=== PATIENT | female | born 1945 | race Caucasian/White ===

== ENCOUNTER 2018-11-20 10:17 | Inpatient (IN) | payer MEDICARE, OTHER ==
[~2018-11-20] VITALS: Ht 167.6 cm; Wt 63.5 kg
--- NOTE | 2018-11-20 10:20 | NUR ---
Patient is awake, oriented to name only, moving 3 extremities (both upper arms & left leg) only, respiration:easy, skin wamr & dry. No skin tears or bruises seen.
[2018-11-20] MEDS ORDERED: HALOPERIDOL LACTATE 5 MG/1 ML VIAL IM ONE (10:30)
[2018-11-20] MEDS ORDERED: LORAZEPAM 2 MG/1 ML VIAL IM ONE (10:30)
[2018-11-20] MEDS ORDERED: HALOPERIDOL LACTATE 5 MG/1 ML VIAL ONE (10:33)
[2018-11-20] MEDS ORDERED: LORAZEPAM 2 MG/1 ML VIAL ONE (10:33)
[2018-11-20] MEDS ORDERED: MULT1TAB73 PO (10:55)
[2018-11-20] MEDS ORDERED: LEVO50TA8 PO (10:55)
[2018-11-20] MEDS ORDERED: DOCU240C26 PO (10:55)
[2018-11-20] MEDS ORDERED: MONT10TA22 PO (10:55)
[2018-11-20] MEDS ORDERED: ACET325T53 PO (10:55)
[2018-11-20] MEDS ORDERED: AMLO2.5T2 PO (10:55)
[2018-11-20] MEDS ORDERED: ACET325C3 PO (10:55)
[2018-11-20] MEDS ORDERED: CHOL100062 PO (10:55)
[2018-11-20] MEDS ORDERED: MEMA1CAP3 PO (10:55)
[2018-11-20] MEDS ORDERED: MAGN400O6 PO (10:55)
[2018-11-20] MEDS ORDERED: VALP250S3 PO (10:55)
[2018-11-20] MEDS ORDERED: CRAN1CAP6 PO (10:55)
--- NOTE | 2018-11-20 11:26 | NUR ---
Patient is resting comfortably on gurney with eyes closed, easily arousable by touch, for admission to 2nd floor, pending adimtting papers@this time. ER registration staff Josue notified.
[2018-11-20 11:36] LABS: BASOPHILS # (AUTO) 0.1 K/uL (0.0-8.0); BASOPHILS % (AUTO) 0.5 % (0.0-2.0); CARBON DIOXIDE 28 mmol/L (21-32); CHLORIDE 106 mmol/L (98-107); CREATININE 0.5 mg/dL (0.6-1.3); EOSINOPHILS # (AUTO) 0.1 K/uL (0.0-0.7); EOSINOPHILS % (AUTO) 1.5 % (0.0-7.0); GLUCOSE 99 mg/dL (74-106); HEMATOCRIT 36.7 % (31.2-41.9); HEMOGLOBIN 12.3 g/dL (10.9-14.3); LYMPHOCYTES % (AUTO) 9.9 % (20.5-51.5); MEAN CORPUSCULAR HEMOGLOBIN 28.6 uug (24.7-32.8); MEAN CORPUSCULAR HGB CONC 34 g/dL (32.3-35.6); MEAN CORPUSCULAR VOLUME 85.5 fL (75.5-95.3); MONOCYTES # (AUTO) 0.9 K/uL (2.0-10.0); MONOCYTES % (AUTO) 9.2 % (0.0-11.0); NEUTROPHILS # (AUTO) 8.1 K/uL (1.8-8.9); NEUTROPHILS % (AUTO) 78.9 % (38.5-71.5); PLATELET COUNT (AUTO) 240 K/uL (179-408); POTASSIUM 3.5 mmol/L (3.5-5.1); RED BLOOD CELL COUNT(AUTO) 4.29 MIL/uL (3.63-4.92); UREA NITROGEN, BLOOD 20 mg/dL (7-18); WHITE BLOOD COUNT (AUTO) 10.2 K/uL (3.8-11.8)
--- NOTE | 2018-11-20 11:55 | NUR ---
ER registration staff Josue just handed the admitting papers. Patient is now ready to go to 2nd floor. ARNOLD Sneed notified.
[2018-11-20 12:32] VITALS: BP 118/59
[2018-11-20] MEDS ORDERED: IV NS 1000 ML 1,000 ML IV PRN (13:28)
[2018-11-20] MEDS ORDERED: MAGNESIUM HYDROXIDE 30 ML LIQUID UDC PO PRN (13:30)
[2018-11-20] MEDS ORDERED: Z GUARD REMEDY PASTE 57 GM TUBE TOP PRN (13:30)
[2018-11-20] MEDS ORDERED: ONDANSETRON 4 MG/2 ML VIAL IV PRN (13:30)
[2018-11-20] MEDS ORDERED: ACETAMINOPHEN 325 MG TABLET PO PRN ×2 (13:30→13:45)
[2018-11-20] MEDS ORDERED: Medication Not On Formulary EA (Acetaminophen 650 MG) PO PRN (13:45)
--- NOTE | 2018-11-20 14:00 | NUR ---
received patient from ER via [facility] with DX of right femoral fracture and admitted to medsurg unit, with vital signs of 118/59 , HR 89, temp 98.5 and o2 at 100%. , no SOB noted and no c/o pain noted at this time, IV intact and ID band provede. will continue to monitor.
[2018-11-20 16:00] VITALS: BP 138/69
[2018-11-20 16:01] LABS: *BILIRUBIN,URIN NEGATIVE (NEGATIVE); *BLOOD, URINE TRACE (NEGATIVE); *CLARITY,URINE CLEAR (CLEAR); *COLOR,URINE YELLOW (YELLOW); *KETONES,URINE NEGATIVE (NEGATIVE); *UROBILINOGEN,URINE 0.2 E.U./dl (NORMAL); LEUKOCYTE ESTERASE ,URINE 2+ (NEGATIVE); NITRITE, URINE NEGATIVE (NEGATIVE); UGLUCOSE NEGATIVE (NEGATIVE)
[2018-11-20 16:11] LABS: RBC,URINE 0-3 /HPF (0-3)
[2018-11-20 16:12] LABS: BACTERIA,URINE R /HPF (NONE SEEN); SQUAMOUS EPITHELIAL CELL,UR FEW /HPF (NONE SEEN)
[2018-11-20] MEDS ORDERED: Medication Not On Formulary EA (Vit C/Vitamin E Acetate/Cranb (Cranberry Concentrate Sof PO SCH (17:00)
[2018-11-20] MEDS ORDERED: VALPROATE SODIUM PO SCH (17:00)
[2018-11-20] MEDS ORDERED: MEMANTINE HCL 10 MG TABLET PO SCH (17:00)
[2018-11-20] MEDS: MONTELUKAST SODIUM 10 MG TABLET PO SCH (18:00)
--- NOTE | 2018-11-20 18:55 | NUR ---
patient laying in bed comfortably with no SOB noted and no c/o pain noted at this time, IV intact and ID band. will continue to monitor.
[2018-11-20 19:07] VITALS: BP 118/66
[2018-11-20] MEDS: DIVALPROEX 125 MG TABLET.DR PO SCH (21:00)
[2018-11-20] MEDS ORDERED: MAGNESIUM HYDROXIDE 30 ML LIQUID UDC PO SCH (21:00)
[2018-11-20] MEDS: DOCUSATE SODIUM 250 MG CAPSULE PO SCH (21:00)
[2018-11-21 03:07] VITALS: BP 127/64
[2018-11-21] MEDS: PANTOPRAZOLE SODIUM 40 MG TABLET.DR PO SCH ×2 (06:20→06:26)
[2018-11-21] MEDS: LEVOTHYROXINE SODIUM 50 MCG TABLET PO SCH ×2 (06:22→06:26)
--- NOTE | 2018-11-21 06:41 | NUR ---
Patient very drowsy upon receiving into care last night. Arousable to painful stimuli and vigorous stimulation. A&O x 1, confused. NPO for possible surgery today. VSS. Vora in situ and draining clear yellow urine. Patient more awake in the morning and refused am meds. IV NS infusing at 75 cc/hr to R hand. No acute event throughout the shift.
--- NOTE | 2018-11-21 07:39 | NUR ---
patient is in bed, no acute distress noted, will be kept NPO for surgery
[2018-11-21] MEDS: DIVALPROEX 125 MG TABLET.DR PO SCH ×2 (08:06→21:00)
[2018-11-21] MEDS: MEMANTINE HCL 10 MG TABLET PO SCH ×2 (08:06→18:18)
[2018-11-21] MEDS: CHOLECALCIFEROL 1,000 UNIT TABLET PO SCH (08:07)
[2018-11-21] MEDS: MULTIVITAMINS,THERAPEUTIC TABLET PO SCH (08:07)
[2018-11-21] MEDS: AMLODIPINE 2.5 MG TABLET PO SCH (08:07)
[2018-11-21] MEDS: DONEPEZIL 10 MG TABLET PO SCH (08:13)
[2018-11-21] MEDS ORDERED: Medication Not On Formulary EA (Docusate Calcium 240 MG) PO SCH (09:00)
[2018-11-21] MEDS ORDERED: Medication Not On Formulary EA (Multivitamins (Multivitamin) 1 EACH) PO SCH (09:00)
[2018-11-21] MEDS ORDERED: Medication Not On Formulary EA (Memantine HCl/Donepezil HCl (Namzaric 28 mg-10 mg Capsul PO SCH (09:00)
[2018-11-21] MEDS: CEFTRIAXONE 1 G in IV DEXTROSE 5% 50 ML IV SCH (11:18)
[2018-11-21 12:00] VITALS: BP 155/67
--- NOTE | 2018-11-21 13:00 | NUR ---
patient left for surgery
[2018-11-21] MEDS ORDERED: VANCOMYCIN 1000 MG VIAL ONE (13:09)
[2018-11-21] MEDS ORDERED: POLYMYXIN B SULFATE 500,000 UNITS, BACITRACIN 50,000 UNITS, NORMAL SALINE 20 ML MC ONE ×3 (13:15)
[2018-11-21] MEDS ORDERED: MIDAZOLAM HCL 2 MG/2 ML VIAL ONE (13:23)
[2018-11-21] MEDS ORDERED: FENTANYL CITRATE 250 MCG/5 ML AMPUL ONE (13:23)
[2018-11-21] MEDS ORDERED: ROCURONIUM BROMIDE 50 MG/5 ML VIAL ONE (13:24)
[2018-11-21] MEDS ORDERED: SEVOFLURANE 250 ML BOTTLE IH ONE (13:36)
[2018-11-21] MEDS ORDERED: CEFAZOLIN 1 G VIAL MC ONE (13:56)
[2018-11-21] MEDS ORDERED: IV NORMAL SALINE 1000 ML BAG IV ONE (13:56)
[2018-11-21] MEDS ORDERED: ONDANSETRON 4 MG/2 ML VIAL IV ONE (13:56)
[2018-11-21] MEDS ORDERED: GLYCOPYRROLATE 0.2 MG/ML VIAL MC ONE (13:56)
[2018-11-21] MEDS ORDERED: PROPOFOL 200 MG/20 ML BOTTLE IV ONE (13:56)
[2018-11-21] MEDS ORDERED: METOCLOPRAMIDE HCL 10 MG/2 ML VIAL IV ONE (13:56)
[2018-11-21] MEDS ORDERED: NEOSTIGMINE METHYLSULFATE 10 MG/10 ML VIAL IV ONE (13:56)
[2018-11-21] MEDS ORDERED: IV D5W-0.45% NS +20 KCL 1,000 ML IV ONE (15:41)
--- NOTE | 2018-11-21 16:50 | NUR ---
patient came back from surgery, no sob,resp even nonlabored,skin warm and dry to touch, o2 sat at 2 liter nasal canula 99%, abduction pillow in place, right pedal pulse palpable. no acute distress noted.
[2018-11-21 17:00] VITALS: BP 129/60
[2018-11-21] MEDS: POTASSIUM CHLORIDE 20 MEQ in IV D5 1/2 NS 1000 ML 1,000 ML IV PRN (17:34)
[2018-11-21] MEDS ORDERED: POTASSIUM CHLORIDE 20 MEQ in IV D5 1/2 NS 1000 ML 1,000 ML IV PRN (18:00)
[2018-11-21] MEDS: MONTELUKAST SODIUM 10 MG TABLET PO SCH (18:18)
[2018-11-21 19:16] VITALS: BP 129/76
--- NOTE | 2018-11-21 19:38 | NUR ---
patient is in bed, no acute distress noted, report given to night shift supervisor accordingly
[2018-11-21] MEDS: DOCUSATE SODIUM 250 MG CAPSULE PO SCH (21:00)
--- NOTE | 2018-11-21 22:30 | NUR ---
PATIENT IS DROWSY, RESPONDS TO VERBAL STIMULI. REFUSES NASAL CANNULA, REFUSES TO EAT AND DRINK. UNABLE TO GIVE COLACE AND DEPAKOTE. OSCAR HELLER NOTIFIED VIA TEXT. NO RESPONSE. PATIENT IS CALM, NO DISTRESS NOTED. COMFORT AND SAFETY PROVIDED.
[2018-11-22 03:11] VITALS: BP 137/72
[2018-11-22] MEDS: POTASSIUM CHLORIDE 20 MEQ in IV D5 1/2 NS 1000 ML 1,000 ML IV PRN ×2 (06:15→23:28)
[2018-11-22 06:50] LABS: BASOPHILS % (AUTO) 0.2 % (0.0-2.0); EOSINOPHILS # (AUTO) 0.1 K/uL (0.0-0.7); EOSINOPHILS % (AUTO) 0.4 % (0.0-7.0); HEMOGLOBIN 11.3 g/dL (10.9-14.3); RED BLOOD CELL COUNT(AUTO) 3.95 MIL/uL (3.63-4.92)
[2018-11-22 06:55] LABS: CARBON DIOXIDE 26 mmol/L (21-32); CHLORIDE 106 mmol/L (98-107); CREATININE 0.6 mg/dL (0.6-1.3); GLUCOSE 147 mg/dL (74-106); MAGNESIUM 1.7 mg/dL (1.8-2.4); PHOSPHOROUS 2.7 mg/dL (2.5-4.9); UREA NITROGEN, BLOOD 15 mg/dL (7-18)
[2018-11-22] MEDS: LEVOTHYROXINE SODIUM 50 MCG TABLET PO SCH (07:00)
[2018-11-22] MEDS: PANTOPRAZOLE SODIUM 40 MG TABLET.DR PO SCH (07:00)
[2018-11-22 07:01] LABS: HEMATOCRIT 34.4 % (31.2-41.9); LYMPHOCYTES % (AUTO) 7.5 % (20.5-51.5); MEAN CORPUSCULAR HEMOGLOBIN 28.6 uug (24.7-32.8); MEAN CORPUSCULAR HGB CONC 33 g/dL (32.3-35.6); MONOCYTES # (AUTO) 1.7 K/uL (2.0-10.0); MONOCYTES % (AUTO) 12.1 % (0.0-11.0); NEUTROPHILS # (AUTO) 11.1 K/uL (1.8-8.9); NEUTROPHILS % (AUTO) 79.8 % (38.5-71.5); PLATELET COUNT (AUTO) 276 K/uL (179-408)
[2018-11-22 07:02] LABS: WHITE BLOOD COUNT (AUTO) 13.9 K/uL (3.8-11.8)
--- NOTE | 2018-11-22 07:45 | NUR ---
Patient slept well at night, no BM during the shift. Patient continues to refuse oxygen, water, food, and meds. Endorsed to the the day shift nurse ROSEMARY Curry.
[2018-11-22 08:13] VITALS: BP 116/75
[2018-11-22] MEDS: MEMANTINE HCL 10 MG TABLET PO SCH ×3 (08:30→17:00)
[2018-11-22] MEDS: CHOLECALCIFEROL 1,000 UNIT TABLET PO SCH ×2 (08:30→08:43)
[2018-11-22] MEDS: DIVALPROEX 125 MG TABLET.DR PO SCH ×3 (08:32→21:00)
[2018-11-22] MEDS: DONEPEZIL 10 MG TABLET PO SCH ×2 (08:32→08:42)
[2018-11-22] MEDS: AMLODIPINE 2.5 MG TABLET PO SCH ×2 (08:32→08:43)
[2018-11-22] MEDS: MULTIVITAMINS,THERAPEUTIC TABLET PO SCH ×2 (08:32→08:43)
--- NOTE | 2018-11-22 08:43 | NUR ---
[place]ace[place] dropped on floor while preparing medications, thrown in sharps. Patient refusing medications, tried crushing and putting in applesauce, patient still refusing. Medications thrown in sharps. Patient is also refusing to eat. Will notify
[2018-11-22] MEDS ORDERED: MORPHINE SULFATE 2 MG/1 ML DISP.SYRIN IV PRN (09:00)
[2018-11-22 11:00] VITALS: BP 118/66
[2018-11-22] MEDS: CEFTRIAXONE 1 G in IV DEXTROSE 5% 50 ML IV SCH (11:04)
[2018-11-22] MEDS ORDERED: MAGNESIUM SULFATE/D5W 100 ML IV SCH (11:15)
[2018-11-22 12:14] LABS: ALANINE AMINOTRANSFERASE 16 U/L (14-59); ALKALINE PHOSPHATASE 59 U/L (50-136); ASPARTATE AMINOTRANSFERASE 29 U/L (15-37); BILIRUBIN,DIRECT 0.1 mg/dL (0.0-0.2); BILIRUBIN,TOTAL 0.5 mg/dL (0.2-1.0); TOTAL PROTEIN, SERUM 6.5 g/dL (6.4-8.2)
[2018-11-22 12:24] LABS: THYROID STIMULATING HORMONE 1.555 mIU/mL (0.358-3.740)
[2018-11-22 15:18] VITALS: BP 133/52
[2018-11-22] MEDS ORDERED: PIPERACILLIN SODIUM/TAZOBACTAM 3.375 G in IV DEXTROSE 5% 50 ML IV ONE (15:30)
[2018-11-22] MEDS: MONTELUKAST SODIUM 10 MG TABLET PO SCH (17:01)
[2018-11-22 17:27] LABS: *BILIRUBIN,URIN NEGATIVE (NEGATIVE); *BLOOD, URINE 1+ (NEGATIVE); *CLARITY,URINE CLEAR (CLEAR); *COLOR,URINE YELLOW (YELLOW); *KETONES,URINE NEGATIVE (NEGATIVE); LEUKOCYTE ESTERASE ,URINE NEGATIVE (NEGATIVE); NITRITE, URINE NEGATIVE (NEGATIVE); UGLUCOSE NEGATIVE (NEGATIVE)
[2018-11-22 17:36] LABS: BACTERIA,URINE FEW /HPF (NONE SEEN); SQUAMOUS EPITHELIAL CELL,UR FEW /HPF (NONE SEEN)
--- NOTE | 2018-11-22 18:34 | NUR ---
Patient is awake and alert to self only. Respond only yes or no. Refusing all medications and meals today. Turned and repositioned q2h. Abduction pillow in place. surgical site remains dry and intact. Addendum: 11/22/18 at 1839 by OMAR SYKES RN urine sent to lab for repeat culture
[2018-11-22 20:00] VITALS: BP 142/75
--- NOTE | 2018-11-22 20:30 | NUR ---
PATIENT IS DROWSY, RESPONDS TO VERBAL STIMULI. REFUSES NASAL CANNULA, REFUSES TO EAT AND DRINK. UNABLE TO GIVE MEDICATIONS AND FOOD. ATTEMPTED TO DO ORAL CARE, PATIENT REFUSED. PATIENT IS CALM, NO DISTRESS NOTED. COMFORT AND SAFETY PROVIDED. NO BLEEDING FROM THE SURGICAL SITE NOTED.
[2018-11-22] MEDS: DOCUSATE SODIUM 250 MG CAPSULE PO SCH (21:00)
[2018-11-22] MEDS: PIPERACILLIN/TAZOBACTAM/D5W 3.375 G in PREMIXED 1 EACH IV SCH (23:57)
[2018-11-23 05:18] VITALS: BP 127/69
[2018-11-23] MEDS: LEVOTHYROXINE SODIUM 50 MCG TABLET PO SCH (06:30)
[2018-11-23] MEDS: PANTOPRAZOLE SODIUM 40 MG TABLET.DR PO SCH (06:30)
[2018-11-23 07:06] LABS: BASOPHILS # (AUTO) 0.1 K/uL (0.0-8.0); BASOPHILS % (AUTO) 0.5 % (0.0-2.0); EOSINOPHILS # (AUTO) 0.2 K/uL (0.0-0.7); LYMPHOCYTES # (AUTO) 1.2 K/uL (20.0-40.0); LYMPHOCYTES % (AUTO) 7.4 % (20.5-51.5); MEAN CORPUSCULAR HEMOGLOBIN 28.8 uug (24.7-32.8); MEAN CORPUSCULAR HGB CONC 33 g/dL (32.3-35.6); MEAN CORPUSCULAR VOLUME 86.2 fL (75.5-95.3); MONOCYTES # (AUTO) 1.7 K/uL (2.0-10.0); MONOCYTES % (AUTO) 10.8 % (0.0-11.0); NEUTROPHILS # (AUTO) 12.7 K/uL (1.8-8.9); NEUTROPHILS % (AUTO) 80.3 % (38.5-71.5); PLATELET COUNT (AUTO) 270 K/uL (179-408); RED BLOOD CELL COUNT(AUTO) 3.83 MIL/uL (3.63-4.92); WHITE BLOOD COUNT (AUTO) 15.8 K/uL (3.8-11.8)
--- NOTE | 2018-11-23 07:20 | NUR ---
Patient slept well at night, no BM during the shift, Vora is leaking. Patient continues to refuse water, food, oral care, and meds. Surgical site is not bleeding, no swelling noted. Endorsed to the the day shift nurse.
[2018-11-23 07:24] LABS: CARBON DIOXIDE 26 mmol/L (21-32); CHLORIDE 104 mmol/L (98-107); CREATININE 0.5 mg/dL (0.6-1.3); GLUCOSE 130 mg/dL (74-106); MAGNESIUM 2.3 mg/dL (1.8-2.4); PHOSPHOROUS 2.9 mg/dL (2.5-4.9); POTASSIUM 4.2 mmol/L (3.5-5.1); UREA NITROGEN, BLOOD 11 mg/dL (7-18)
--- NOTE | 2018-11-23 07:41 | NUR ---
Nurse Notes: received report from the night nurse Ray Alberts RN, patient only stares, does not speak. IV is infusing at 75 cc per hour. appears in no discomfort, in no respiratory distress.
[2018-11-23] MEDS: PIPERACILLIN/TAZOBACTAM/D5W 3.375 G in PREMIXED 1 EACH IV SCH ×3 (08:30→22:42)
[2018-11-23] MEDS: MEMANTINE HCL 10 MG TABLET PO SCH ×3 (09:00→18:10)
[2018-11-23] MEDS: AMLODIPINE 2.5 MG TABLET PO SCH (09:00)
[2018-11-23] MEDS: MULTIVITAMINS,THERAPEUTIC TABLET PO SCH ×2 (09:00→18:19)
[2018-11-23] MEDS: CHOLECALCIFEROL 1,000 UNIT TABLET PO SCH (09:00)
[2018-11-23] MEDS: DIVALPROEX 125 MG TABLET.DR PO SCH ×2 (09:00→21:36)
[2018-11-23] MEDS: DONEPEZIL 10 MG TABLET PO SCH (09:00)
--- NOTE | 2018-11-23 10:33 | NUR ---
PHARMACY CLINICAL NOTE (VANCOMYCIN DOSING) S: 73 YO female with DX of Leukocytosis, on Zosyn as well. Now adding Vancomycin O: BUN/SCR 11/0.5 (used scr 0.7); WBC 139--> 15.8, TEMP 98.6, DOSING WT 64 KG A/P: Will start Vancomycin 1000mg IVPB q14h , estimated peak of 38 & trough of 17, plan to order trough prior to 4th dose of vancomycin. [facility].
[2018-11-23 11:00] VITALS: BP 117/68
--- NOTE | 2018-11-23 11:00 | NUR ---
Nurse Notes:' patient was being cleaned up, left buttocks/sacral with break in skin, wound care consult, area needs to be changed. report from the night nurse Ray, skin was intact. charge nurse Caren took pictures of left sacral area and right hip incision. first step mattress was ordered.
[2018-11-23] MEDS: VANCOMYCIN IV 200 ML IV SCH (12:28)
--- NOTE | 2018-11-23 14:57 | NUR ---
Nurse Notes: seen by physical therapy, patient was able to stand, needs two person assistance. IV Vancomycin infused. patient is still having IV zosyn IVPB.
[2018-11-23 15:16] VITALS: BP 119/63
[2018-11-23] MEDS: MONTELUKAST SODIUM 10 MG TABLET PO SCH (18:09)
--- NOTE | 2018-11-23 18:15 | NUR ---
patient is able to swallow pills crush, with some pudding with small tsp of water, patient likes vanilla pudding. IV remains at 75 cc per hour.
--- NOTE | 2018-11-23 19:10 | NUR ---
Shift Report given to Ray. patient is able to swallow pills crushed, with vanilla pudding. apple sauce patient spit out. IV is infusing atr 75 cc per hour.
--- NOTE | 2018-11-23 19:55 | NUR ---
RECEIVED REPORT, PATIENT SHOWS NO SIGNS OF DISTRESS. COMFORT AND SAFETY PROVIDED. BOTH IVS ARE PATENT, WERE FLUSHED.
[2018-11-23 20:00] VITALS: BP 124/54
[2018-11-23] MEDS: DOCUSATE SODIUM 250 MG CAPSULE PO SCH (21:00)
--- NOTE | 2018-11-23 22:00 | NUR ---
PATIENT ATE 1/2 OF BANANA, 1/3 CUP OF VANILLA PUDDING, DRANK 30 ML OF JUICE. DEPAKOTE WAS CRUSHED INTO A FINE POWDER AND MIXED WITH PUDDING. COMFORT AND SAFETY MEASURE ARE IN PLACE, PATIENT WAS TURNED AND REPOSITIONED. BRAND IS DRAINING FREELY, NO LEAKAGE NOTED
[2018-11-24] MEDS: POTASSIUM CHLORIDE 20 MEQ in IV D5 1/2 NS 1000 ML 1,000 ML IV PRN (01:18)
[2018-11-24] MEDS: VANCOMYCIN IV 200 ML IV SCH (02:41)
[2018-11-24 05:16] VITALS: BP 122/63
[2018-11-24] MEDS: PIPERACILLIN/TAZOBACTAM/D5W 3.375 G in PREMIXED 1 EACH IV SCH ×2 (05:48→13:57)
[2018-11-24] MEDS: LEVOTHYROXINE SODIUM 50 MCG TABLET PO SCH (06:23)
[2018-11-24] MEDS: PANTOPRAZOLE SODIUM 40 MG TABLET.DR PO SCH (06:23)
[2018-11-24 06:47] LABS: BASOPHILS # (AUTO) 0.1 K/uL (0.0-8.0); BASOPHILS % (AUTO) 0.4 % (0.0-2.0); EOSINOPHILS # (AUTO) 0.6 K/uL (0.0-0.7); EOSINOPHILS % (AUTO) 4.2 % (0.0-7.0); LYMPHOCYTES # (AUTO) 1.2 K/uL (20.0-40.0); LYMPHOCYTES % (AUTO) 9.1 % (20.5-51.5); MEAN CORPUSCULAR HGB CONC 32 g/dL (32.3-35.6); MEAN CORPUSCULAR VOLUME 86.7 fL (75.5-95.3); MONOCYTES # (AUTO) 1.4 K/uL (2.0-10.0); MONOCYTES % (AUTO) 10.5 % (0.0-11.0); NEUTROPHILS % (AUTO) 75.8 % (38.5-71.5); PLATELET COUNT (AUTO) 314 K/uL (179-408); RED BLOOD CELL COUNT(AUTO) 3.91 MIL/uL (3.63-4.92); WHITE BLOOD COUNT (AUTO) 13.2 K/uL (3.8-11.8)
--- NOTE | 2018-11-24 07:00 | NUR ---
PATIENT SLEPT WELL, REPOSITIONED AND OFFLOADED Q2H. BRAND IS LEAKING AGAIN. BALLOON WAS DEFLATED AND REINFLATED WITH A CORRECT AMOUNT OF FLUID. IV IS PATENT.
[2018-11-24 07:01] LABS: CARBON DIOXIDE 30 mmol/L (21-32); CHLORIDE 104 mmol/L (98-107); CREATININE 0.6 mg/dL (0.6-1.3); GLUCOSE 110 mg/dL (74-106); MAGNESIUM 2.3 mg/dL (1.8-2.4); UREA NITROGEN, BLOOD 9 mg/dL (7-18)
[2018-11-24] MEDS: MULTIVITAMINS,THERAPEUTIC TABLET PO SCH (08:49)
[2018-11-24] MEDS: CHOLECALCIFEROL 1,000 UNIT TABLET PO SCH (08:49)
[2018-11-24] MEDS: MEMANTINE HCL 10 MG TABLET PO SCH (08:49)
[2018-11-24] MEDS: AMLODIPINE 2.5 MG TABLET PO SCH (08:49)
[2018-11-24] MEDS: DONEPEZIL 10 MG TABLET PO SCH (08:49)
[2018-11-24] MEDS: DIVALPROEX 125 MG TABLET.DR PO SCH (08:49)
[2018-11-24] MEDS ORDERED: DOCU250C14 PO (12:22)
[2018-11-24] MEDS ORDERED: DIVA125T2 PO (12:22)
[2018-11-24] MEDS ORDERED: DONE10TA11 PO (12:22)
[2018-11-24 12:40] VITALS: BP 116/68
--- NOTE | 2018-11-24 12:45 | NUR ---
PHARMACY CLINICAL NOTE (VANCOMYCIN DOSING) S:To continue vanco dosing for this 73 YO female for Leukocytosis O: BUN/SCR 11/0.6 WBC 13.2, TEMP 98.9 wt 63.85 kg ht 167.6 cm A/P: Will continue same dose of Vancomycin 1000mg IVPB q14h for today. 3rd dose today at 1600. Plan to order trough prior to 4th dose of vancomycin (ordered for 11/25 at 0530- RN has been informed to hold 0600 dose if vanco trough level is above 20 mcg/ml.) Will continue to monitor.
[2018-11-24 16:04] VITALS: BP 97/55
--- NOTE | 2018-11-24 18:00 | NUR ---
IV D/C'D PICTURES TAKEN. REPORT CALLED AND GIVEN TO SNF AND AMBULANCE ATTENDANTS.. DISCHARGED VIA AMBULANCE.
--- NOTE | 2018-11-24 19:05 | NUR ---
IV D/C'D REPORT CALLED TO HERMANN RILEY AT [facility] REPORT TO AMBULANCE ATTENDANTS TRANSFER TO [facility] VIA STRETCHER/AMBULANCE
== END 2018-11-24 19:00 | DRG 469 ==
LOC: ER 10:17 → MEDSURG3 11:42
PROVIDERS: ADMIT Registered Nurse; ATTEND Registered Nurse
PROC: 0SRR0JA Replacement of Right Hip Joint, Femoral Surface with Synthetic Substitute, Uncemented, Open Approach (ICD-10-PCS; principal; 2018-11-21)
DX: S72.001A Fracture of unspecified part of neck of right femur, initial encounter for closed fracture (principal); G92 Toxic encephalopathy; N39.0 Urinary tract infection, site not specified; J98.11 Atelectasis; W19.XXXA Unspecified fall, initial encounter; Y92.129 Unspecified place in nursing home as the place of occurrence of the external cause; G30.9 Alzheimer's disease, unspecified; F02.80 Dementia in other diseases classified elsewhere, unspecified severity, without behavioral disturbance, psychotic disturbance, mood disturbance, and anxiety; E03.9 Hypothyroidism, unspecified; Z79.890 Hormone replacement therapy; J45.909 Unspecified asthma, uncomplicated; R79.89 Other specified abnormal findings of blood chemistry; Z98.1 Arthrodesis status; I10 Essential (primary) hypertension; D72.829 Elevated white blood cell count, unspecified; Z79.899 Other long term (current) drug therapy; F20.9 Schizophrenia, unspecified; Z91.14 Patient's other noncompliance with medication regimen
CPT/HCPCS: 36415; 71045; 72170; 73501; 73551; 83735; 84100; 84443; 85025; 85730; 86850; 86900; 86901; 87086; 93005; 93307; 97110; 97530; A4649; A4663; C1776; G0378; J0690; J0696; J1630; J2060; J2250; J2270; J2405; J2543; J2710; J2765; J3010; J3370; J3475; J3480; J3490; J7030; J7060

== ENCOUNTER 2021-02-11 21:28 | Inpatient (IN) | payer MEDICARE, OTHER ==
[~2021-02-11] VITALS: Ht 167.6 cm; Wt 63.3 kg
[~2021-02-11 21:28] MED LIST: ACET325C3 PO; ACET325T53 PO; AMLO2.5T2 PO; CHOL100062 PO; CRAN1CAP6 PO; DIVA125T2 PO; DOCU240C26 PO; DOCU250C14 PO; DONE10TA11 PO; LEVO50TA8 PO; MAGN400O6 PO; MEMA1CAP3 PO; MONT10TA22 PO; MULT-594 PO; VALP250S3 PO
[2021-02-11] MEDS ORDERED: ONDANSETRON 4 MG/2 ML VIAL IV ONE (21:45)
[2021-02-11] MEDS ORDERED: HYDROMORPHONE 1 MG/1 ML DISP.SYRIN IV ONE (21:45)
[2021-02-11] MEDS ORDERED: IV NORMAL SALINE 500 ML BAG IV ONE (21:45)
[2021-02-11] MEDS ORDERED: ONDANSETRON 4 MG/2 ML VIAL ONE (22:00)
[2021-02-11] MEDS ORDERED: HYDROMORPHONE 1 MG/1 ML DISP.SYRIN ONE (22:00)
[2021-02-11 22:04] LABS: HEMATOCRIT 40.6 % (31.2-41.9); MEAN CORPUSCULAR HEMOGLOBIN 29.6 uug (24.7-32.8); MEAN CORPUSCULAR VOLUME 88.5 fL (75.5-95.3); PLATELET COUNT (AUTO) 249 K/uL (179-408)
--- NOTE | 2021-02-11 22:08 | NUR ---
PT IS IN ROOM #1A. DR ENNIS EVALUATED THE PT.
[2021-02-11 22:09] LABS: CREATININE 0.8 mg/dL (0.6-1.3); POTASSIUM 3.7 mmol/L (3.5-5.1)
[2021-02-11 22:15] LABS: BILIRUBIN,DIRECT 0.2 mg/dL (0.0-0.2); BILIRUBIN,TOTAL 0.5 mg/dL (0.2-1.0); TOTAL PROTEIN, SERUM 6.9 g/dL (6.4-8.2)
--- NOTE | 2021-02-11 23:00 | NUR ---
Dr. Louis on panel call with Cherelle Davis NP. Patient accepted for admission to [facility], diagnosis: left hip fracture.
[2021-02-11] MEDS ORDERED: MAGNESIUM HYDROXIDE 30 ML LIQUID UDC PO PRN (23:30)
[2021-02-11] MEDS ORDERED: ONDANSETRON 4 MG/2 ML VIAL IV PRN (23:30)
[2021-02-11] MEDS ORDERED: Z GUARD REMEDY PASTE 57 GM TUBE TOP PRN (23:30)
--- NOTE | 2021-02-12 02:12 | NUR ---
Report given to Fannie RILEY Medsurg.
[2021-02-12 02:52] LABS: *BILIRUBIN,URIN NEGATIVE (NEGATIVE); *BLOOD, URINE 3+ (NEGATIVE); *CLARITY,URINE CLOUDY (CLEAR); *COLOR,URINE AMBER (YELLOW); *KETONES,URINE NEGATIVE (NEGATIVE); *UROBILINOGEN,URINE 0.2 E.U./dl (NORMAL); LEUKOCYTE ESTERASE ,URINE 1+ (NEGATIVE); NITRITE, URINE POSITIVE (NEGATIVE); PH,URINE 5.5 (5.0-8.0); UGLUCOSE NEGATIVE (NEGATIVE)
--- NOTE | 2021-02-12 03:00 | NUR ---
Admitted a 76 y/o female to [facility] with an admitting diagnosis of Left Hip fracture. Assisted in transferring pt to bed, positioned on her right side. Pt on oxygen at @2LPM, saturating 99%. No signs of respiratory distress. Head to toe assessment done, belongings checked and placed at bedside. Vora intact and draining yellow urine. Admission care rendered, safety measures initiated, call light within reach.
[2021-02-12 03:07] LABS: BACTERIA,URINE MANY /HPF (NONE SEEN); RBC,URINE TNTC /HPF (0-3); SQUAMOUS EPITHELIAL CELL,UR MANY /HPF (NONE SEEN)
[2021-02-12] MEDS: IV NS 1000 ML 1,000 ML IV PRN ×2 (03:14→18:08)
[2021-02-12 03:27] VITALS: BP 164/71
[2021-02-12] MEDS: HYDROMORPHONE 1 MG/1 ML DISP.SYRIN IV PRN ×3 (03:54→16:32)
[2021-02-12 04:35] VITALS: BP 133/63
[2021-02-12] MEDS: LEVOTHYROXINE SODIUM 50 MCG TABLET PO SCH (06:51)
--- NOTE | 2021-02-12 06:51 | NUR ---
Pt slept intermittently, no signs of distress. IVF infusing well. Unable to swallow medication, pending swallow eval. Safety measures maintained at all times, call light within reach.
[2021-02-12 06:59] LABS: CREATININE 0.8 mg/dL (0.6-1.3); MAGNESIUM 2.5 mg/dL (1.8-2.4); POTASSIUM 3.8 mmol/L (3.5-5.1)
[2021-02-12 07:03] LABS: HEMATOCRIT 41.2 % (31.2-41.9); MEAN CORPUSCULAR HEMOGLOBIN 29.6 uug (24.7-32.8); MEAN CORPUSCULAR VOLUME 89.5 fL (75.5-95.3); PLATELET COUNT (AUTO) 227 K/uL (179-408)
[2021-02-12] MEDS ORDERED: Medication Not On Formulary EA (Vit C/Vitamin E Acetate/Cranb (Cranberry Concentrate Sof PO SCH (09:00)
[2021-02-12] MEDS ORDERED: DONEPEZIL HCL PO SCH (09:00)
[2021-02-12] MEDS ORDERED: MEMANTINE HCL PO SCH (09:00)
[2021-02-12] MEDS ORDERED: VALPROATE SODIUM PO SCH (09:00)
[2021-02-12] MEDS ORDERED: DONEPEZIL 10 MG TABLET PO SCH (09:00)
[2021-02-12] MEDS: DIVALPROEX 125 MG TABLET.DR PO SCH ×2 (09:08→20:25)
[2021-02-12] MEDS: MULTIVITAMINS,THERAPEUTIC TABLET PO SCH (09:08)
[2021-02-12] MEDS: CHOLECALCIFEROL 1,000 UNIT TABLET PO SCH (09:08)
[2021-02-12] MEDS: AMLODIPINE 2.5 MG TABLET PO SCH (09:09)
[2021-02-12 12:00] VITALS: BP 143/68
--- NOTE | 2021-02-12 12:25 | NUR ---
patient is going to have a procedure on her left leg, bipolar left leg replacement, tried to call the number on the facesheet to get the consent however unable to reach, will try again.
[2021-02-12] MEDS: CEFTRIAXONE 1 G in IV DEXTROSE 5% 50 ML IV SCH (14:20)
--- NOTE | 2021-02-12 14:23 | NUR ---
midline inserted to upper right arm
[2021-02-12] MEDS ORDERED: BISACODYL 10 MG SUPP.RECT RC PRN (14:45)
[2021-02-12] MEDS ORDERED: MAGNESIUM HYDROXIDE 30 ML LIQUID UDC PO PRN (15:15)
[2021-02-12 16:00] VITALS: BP 133/76
--- NOTE | 2021-02-12 16:13 | NUR ---
suppository administered for constipation, continue to monitor for effectiveness, kept clean and dry.
[2021-02-12] MEDS: MEMANTINE HCL 10 MG TABLET PO SCH (16:32)
--- NOTE | 2021-02-12 19:30 | NUR ---
Received pt in bed, sleeping but easily arousable to name. Aphasic but able to follow simple commands. No signs of acute distress noted. IVF infusing well. Vora cath draining well. Safety measures initiated, call light within reach.
[2021-02-12 20:23] VITALS: BP 123/76
[2021-02-12] MEDS: ACETAMINOPHEN 325 MG TABLET PO PRN (20:25)
[2021-02-12] MEDS: MONTELUKAST SODIUM 10 MG TABLET PO SCH (20:26)
[2021-02-12] MEDS: DOCUSATE SODIUM 250 MG CAPSULE PO SCH (20:26)
[2021-02-12] MEDS: DONEPEZIL 10 MG TABLET PO SCH (20:26)
[2021-02-13 00:20] VITALS: BP 139/64
[2021-02-13 04:15] VITALS: BP 142/62
[2021-02-13] MEDS: LEVOTHYROXINE SODIUM 50 MCG TABLET PO SCH (06:00)
--- NOTE | 2021-02-13 06:50 | NUR ---
No significant change in condition noted, no signs of acute distress. Tolerated due medications. Pt is confused, unable to sign consent for surgical plan for L hip fracture. Will endorse to AM nurse to follow up with family member/significant other for the consent. All needs attended to and met.
--- NOTE | 2021-02-13 07:00 | NUR ---
PATIENT REMAINS CONFUSED AND DISORIENTED NO SS OF ACUTE PAIN OR DISTRESS. SR ON MONITOR
--- NOTE | 2021-02-13 07:18 | NUR ---
tried to reach ash frances patient coservator for surgical consent message left on answering machine
[2021-02-13] MEDS: MEMANTINE HCL 10 MG TABLET PO SCH ×2 (08:14→16:19)
[2021-02-13] MEDS: CHOLECALCIFEROL 1,000 UNIT TABLET PO SCH (08:14)
[2021-02-13] MEDS: MULTIVITAMINS,THERAPEUTIC TABLET PO SCH (08:15)
[2021-02-13] MEDS: AMLODIPINE 2.5 MG TABLET PO SCH (08:15)
[2021-02-13] MEDS: ACETAMINOPHEN 325 MG TABLET PO PRN ×2 (08:15→20:13)
[2021-02-13] MEDS: DIVALPROEX 125 MG TABLET.DR PO SCH ×2 (08:15→20:12)
[2021-02-13] MEDS: IV NS 1000 ML 1,000 ML IV PRN ×2 (08:52→23:16)
[2021-02-13 12:00] VITALS: BP 145/75
--- NOTE | 2021-02-13 12:00 | NUR ---
TRIED TO REACH AGAIN [facility] BUT TO NO AVAIL. MESSAGE LEFT ON ANSWERING MACHINE
--- NOTE | 2021-02-13 14:12 | NUR ---
TRIED TO REACH [facility] TO ASK WHO IS NEXT IN LINE FOR SURGICAL CONSENT TALKED TO STAFF ELIZABETH AND SAID THEY ARE NOT ALLOWED TO SIGN CONSENT AND FURTHER ADVISED THAT 2 MD CAN SIGN OR CALL BACK SNF FOR DEPUTY MEMBER TO SIGN IN AM IF DPOA STILL NOT AVAILABLE. HOSPITALIST BAM HUITRON MADE AWARE
[2021-02-13] MEDS: CEFTRIAXONE 1 G in IV DEXTROSE 5% 50 ML IV SCH (14:46)
[2021-02-13 16:00] VITALS: BP 149/81
--- NOTE | 2021-02-13 19:20 | NUR ---
Received pt in bed, awake but aphasic. Follows simple commands. N signs of respiratory distress noted at this time. IV access intact and patent, IVF infusing well. Vora intact and draining well. Repositioned comfortably in bed, safety precautions initiated, call light within reach.
[2021-02-13] MEDS: MONTELUKAST SODIUM 10 MG TABLET PO SCH (20:11)
[2021-02-13] MEDS: DOCUSATE SODIUM 250 MG CAPSULE PO SCH (20:12)
[2021-02-13] MEDS: DONEPEZIL 10 MG TABLET PO SCH (20:12)
[2021-02-13 20:38] VITALS: BP 146/57
[2021-02-14 04:32] VITALS: BP 146/83
[2021-02-14] MEDS: LEVOTHYROXINE SODIUM 50 MCG TABLET PO SCH (06:28)
--- NOTE | 2021-02-14 06:30 | NUR ---
No signs of distress noted through the night. Tolerated medications well. NPO status since midnight. Pre-op checklist done. Consent attached to pt's chart, to be signed by Dr. Eller today. will endorse to incoming nurse.
[2021-02-14] MEDS ORDERED: MIDAZOLAM HCL 2 MG/2 ML VIAL ONE (06:58)
[2021-02-14] MEDS ORDERED: HYDROMORPHONE 2 MG/1 ML DISP.SYRIN ONE (06:59)
[2021-02-14] MEDS ORDERED: FENTANYL CITRATE 250 MCG/5 ML AMPUL ONE (06:59)
[2021-02-14] MEDS ORDERED: ROCURONIUM BROMIDE 50 MG/5 ML VIAL ONE (07:00)
--- NOTE | 2021-02-14 07:35 | NUR ---
Received awake and responsive. hob elevated. No respiratory distress. Iv atb infusing no adverse reaction noted. Vora catheter intact draining yellow urine. Remains NPO. Bed low and locked with alarm on. Call light within reach. Safety maintained. Will continue to monitor.
[2021-02-14] MEDS ORDERED: BUPIVACAINE/EPI PF 0.25% 30 ML VIAL ONE (07:40)
[2021-02-14] MEDS ORDERED: POLYMYXIN B SULFATE 500,000 UNITS VIAL ONE (07:41)
[2021-02-14] MEDS ORDERED: VANCOMYCIN HCL 500 MG VIAL ONE (07:46)
--- NOTE | 2021-02-14 07:50 | NUR ---
Picked up by 2 OR nurses for scheduled procedure. Consents given to ROSEMARY Sarmiento.
[2021-02-14] MEDS: CHOLECALCIFEROL 1,000 UNIT TABLET PO SCH (10:31)
[2021-02-14] MEDS: AMLODIPINE 2.5 MG TABLET PO SCH (10:31)
[2021-02-14] MEDS: MULTIVITAMINS,THERAPEUTIC TABLET PO SCH (10:31)
[2021-02-14] MEDS: MEMANTINE HCL 10 MG TABLET PO SCH ×2 (10:31→17:00)
[2021-02-14] MEDS: DIVALPROEX 125 MG TABLET.DR PO SCH ×2 (10:31→20:10)
--- NOTE | 2021-02-14 10:32 | NUR ---
Morning medications noted given. Patient still at surgery.
--- NOTE | 2021-02-14 11:15 | NUR ---
Patient came back from surgery via bed stretcher. Alert and responsive. On 2 Lpm via nc spo2 97%. No sob. No s/sx of pain. Left hip dressing intact. No bleeding but noted with swelling. Ice pack put on sx site. Noted with abduction pillow. Noted with pedal pulse but patient unable to move toes on command. Report received from ROSEMARY Chi who said medication orders are already faxed to pharmacy. Per pharmacy will need to verify Ancef atb order d/t patient already on Rocephin. Dr. Eller with further order for IV heplock when tolerating regular diet noted and carried out. Will continue to monitor.
[2021-02-14 12:03] VITALS: BP 134/76
[2021-02-14] MEDS: POTASSIUM CHLORIDE 20 MEQ in IV D5 1/2 NS 1000 ML 1,000 ML IV PRN (12:41)
--- NOTE | 2021-02-14 12:49 | NUR ---
Ashly PRECIADO here for eval. Pt still groggy. Will come back later.
--- NOTE | 2021-02-14 13:50 | NUR ---
Per pharmacy continue Sameer.
[2021-02-14] MEDS: CEFTRIAXONE 1 G in IV DEXTROSE 5% 50 ML IV SCH (13:52)
[2021-02-14] MEDS: MORPHINE SULFATE 2 MG/1 ML DISP.SYRIN IV PRN ×2 (14:40→20:39)
[2021-02-14] MEDS: ACETAMINOPHEN 325 MG TABLET PO PRN ×2 (14:43→20:31)
[2021-02-14 16:02] VITALS: BP 129/83
[2021-02-14] MEDS ORDERED: CEFAZOLIN 1 G in IV DEXTROSE 5% 50 ML IV SCH (16:30)
--- NOTE | 2021-02-14 18:55 | NUR ---
Awake and responsive. On 2 lpm nc spo2 95%. No sob noted. S/p left hip replacement. Dressing is intact. No bleeding noted. Pedal pulse present. Iv atb given with no adverse/allergic reaction noted. Vora catheter intact draining yellow urine. IV intact. Abduction pillow in place. Kept comfortable. Safety measures in place. Call light in reach. Needs attended.
[2021-02-14 20:09] VITALS: BP 152/100
[2021-02-14] MEDS: DONEPEZIL 10 MG TABLET PO SCH (20:10)
[2021-02-14] MEDS: MONTELUKAST SODIUM 10 MG TABLET PO SCH (20:10)
[2021-02-14] MEDS: DOCUSATE SODIUM 250 MG CAPSULE PO SCH (20:10)
[2021-02-15] MEDS: POTASSIUM CHLORIDE 20 MEQ in IV D5 1/2 NS 1000 ML 1,000 ML IV PRN ×2 (03:04→17:17)
[2021-02-15 04:15] VITALS: BP 121/60
[2021-02-15] MEDS: LEVOTHYROXINE SODIUM 50 MCG TABLET PO SCH (06:30)
--- NOTE | 2021-02-15 07:30 | NUR ---
Received awake and responsive. No resp distress. On 2 lpm nc. Vora catheter intact draining yellow urine. S/p left hip replacement. Dressing dry and intact. No bleeding noted. Pedal pulse present. Denies pain. COntinue to monitor.
[2021-02-15] MEDS: MEMANTINE HCL 10 MG TABLET PO SCH ×2 (08:57→16:57)
[2021-02-15] MEDS: ACETAMINOPHEN 325 MG TABLET PO PRN ×2 (08:57→17:07)
[2021-02-15] MEDS: MULTIVITAMINS,THERAPEUTIC TABLET PO SCH (08:58)
[2021-02-15] MEDS: AMLODIPINE 2.5 MG TABLET PO SCH (08:58)
[2021-02-15] MEDS: CHOLECALCIFEROL 1,000 UNIT TABLET PO SCH (08:58)
[2021-02-15] MEDS: DIVALPROEX 125 MG TABLET.DR PO SCH ×2 (08:58→21:35)
--- NOTE | 2021-02-15 09:12 | NUR ---
Noted warm to the touch. Temp checked 100.7. Tyleol prn given. Will continue to monitor.
[2021-02-15 11:59] VITALS: BP 106/53
[2021-02-15] MEDS: ENOXAPARIN SODIUM 40 MG/0.4 ML DISP.SYRIN SQ SCH (12:37)
[2021-02-15] MEDS ORDERED: PIPERACILLIN SODIUM/TAZOBACTAM 3.375 G in IV DEXTROSE 5% 50 ML IV ONE (14:00)
[2021-02-15 16:00] VITALS: BP 135/61
[2021-02-15] MEDS: MORPHINE SULFATE 2 MG/1 ML DISP.SYRIN IV PRN ×2 (17:07→22:25)
--- NOTE | 2021-02-15 19:27 | NUR ---
alert and responsive mumbles. on 2 lpm nc. no resp distress. fc intact and draining yellow urine. iv intact and ongoing hydration. atb given as ordered no adverse/allergic reaction noted. abduction pillow in place. kept comfortable. safety measures in place. endorsed.
--- NOTE | 2021-02-15 19:30 | NUR ---
Received pt in bed, sleeping but arousable to name and light touch. No signs of acute distress. No pain or discomfort noted. IVF infusing well. Vora cath intact and draining well. Safety measures maintained at all times, call light within reach.
[2021-02-15 20:00] VITALS: BP 137/70
[2021-02-15] MEDS: DOCUSATE SODIUM 250 MG CAPSULE PO SCH (21:34)
[2021-02-15] MEDS: MONTELUKAST SODIUM 10 MG TABLET PO SCH (21:34)
[2021-02-15] MEDS: DONEPEZIL 10 MG TABLET PO SCH (21:34)
[2021-02-15] MEDS: PIPERACILLIN SODIUM/TAZOBACTAM 3.375 G in IV DEXTROSE 5% 100 ML IV SCH (22:01)
[2021-02-16 04:00] VITALS: BP 138/70
[2021-02-16] MEDS: ACETAMINOPHEN 325 MG TABLET PO PRN ×2 (05:26→16:37)
[2021-02-16] MEDS: PIPERACILLIN SODIUM/TAZOBACTAM 3.375 G in IV DEXTROSE 5% 100 ML IV SCH ×3 (05:29→21:21)
[2021-02-16 06:06] LABS: HEMATOCRIT 31.5 % (31.2-41.9); MEAN CORPUSCULAR HEMOGLOBIN 29.3 uug (24.7-32.8); MEAN CORPUSCULAR VOLUME 88.4 fL (75.5-95.3); PLATELET COUNT (AUTO) 241 K/uL (179-408)
[2021-02-16 06:20] LABS: CREATININE 0.7 mg/dL (0.6-1.3); MAGNESIUM 2.3 mg/dL (1.8-2.4); PHOSPHOROUS 2.5 mg/dL (2.5-4.9); POTASSIUM 4.4 mmol/L (3.5-5.1)
[2021-02-16] MEDS: LEVOTHYROXINE SODIUM 50 MCG TABLET PO SCH (06:21)
--- NOTE | 2021-02-16 06:43 | NUR ---
Slept through the night, no significant change in condition noted. No signs of acute distress. Tolerated medications well. Sponge bath provided for comfort, repositioning done as needed. Safety measures maintained at all times, all needs attended to and met.
[2021-02-16] MEDS: AMLODIPINE 2.5 MG TABLET PO SCH (08:17)
[2021-02-16] MEDS: MULTIVITAMINS,THERAPEUTIC TABLET PO SCH (08:17)
[2021-02-16] MEDS: MEMANTINE HCL 10 MG TABLET PO SCH ×2 (08:17→16:11)
[2021-02-16] MEDS: CHOLECALCIFEROL 1,000 UNIT TABLET PO SCH (08:17)
[2021-02-16] MEDS: DIVALPROEX 125 MG TABLET.DR PO SCH ×2 (08:17→20:36)
[2021-02-16] MEDS: ENOXAPARIN SODIUM 40 MG/0.4 ML DISP.SYRIN SQ SCH (08:23)
[2021-02-16 12:00] VITALS: BP 110/65
[2021-02-16] MEDS ORDERED: IV NORMAL SALINE 500 ML IV ONE (12:15)
[2021-02-16] MEDS: HYDROCODONE/APAP 10-325 MG TABLET PO PRN (15:41)
[2021-02-16 16:00] VITALS: BP 125/71
[2021-02-16 20:25] VITALS: BP 117/71
[2021-02-16] MEDS: DONEPEZIL 10 MG TABLET PO SCH (20:36)
[2021-02-16] MEDS: MONTELUKAST SODIUM 10 MG TABLET PO SCH (20:36)
[2021-02-16] MEDS: DOCUSATE SODIUM 250 MG CAPSULE PO SCH (20:36)
[2021-02-16] MEDS: MORPHINE SULFATE 2 MG/1 ML DISP.SYRIN IV PRN (21:20)
[2021-02-17 04:11] VITALS: BP 124/95
[2021-02-17] MEDS: PIPERACILLIN SODIUM/TAZOBACTAM 3.375 G in IV DEXTROSE 5% 100 ML IV SCH ×3 (05:09→21:32)
[2021-02-17] MEDS: LEVOTHYROXINE SODIUM 50 MCG TABLET PO SCH (06:08)
[2021-02-17 06:19] LABS: HEMATOCRIT 30.7 % (31.2-41.9); MEAN CORPUSCULAR HEMOGLOBIN 29.3 uug (24.7-32.8); MEAN CORPUSCULAR VOLUME 88.4 fL (75.5-95.3); PLATELET COUNT (AUTO) 275 K/uL (179-408)
[2021-02-17 06:36] LABS: CREATININE 0.7 mg/dL (0.6-1.3); MAGNESIUM 2.5 mg/dL (1.8-2.4); PHOSPHOROUS 3.1 mg/dL (2.5-4.9); POTASSIUM 4.1 mmol/L (3.5-5.1)
--- NOTE | 2021-02-17 07:35 | NUR ---
Received patient, alert/ oriented to self, mumbles. High risk for aspiration. FC, intact. Abduction pillow in place. IV site intact. No distress noted. Frequent checks done. Will continue to monitor.
[2021-02-17 08:04] VITALS: BP 135/70
[2021-02-17] MEDS: AMLODIPINE 2.5 MG TABLET PO SCH (08:13)
[2021-02-17] MEDS: CHOLECALCIFEROL 1,000 UNIT TABLET PO SCH (08:13)
[2021-02-17] MEDS: MEMANTINE HCL 10 MG TABLET PO SCH ×2 (08:13→16:52)
[2021-02-17] MEDS: MULTIVITAMINS,THERAPEUTIC TABLET PO SCH (08:13)
[2021-02-17] MEDS: DIVALPROEX 125 MG TABLET.DR PO SCH ×2 (08:13→20:12)
[2021-02-17] MEDS: ENOXAPARIN SODIUM 40 MG/0.4 ML DISP.SYRIN SQ SCH (08:13)
[2021-02-17 12:02] VITALS: BP 138/72
[2021-02-17 16:28] VITALS: BP 137/68
[2021-02-17] MEDS: ENSURE ENLIVE (VAN) 240 ML LIQUID PO SCH (16:52)
[2021-02-17] MEDS: HYDROCODONE/APAP 10-325 MG TABLET PO PRN (16:57)
--- NOTE | 2021-02-17 19:00 | NUR ---
Kept patient comfortable. All due medications given. All needs attended. No distress identified. Will endorse to the next shift for continuity of care.
[2021-02-17 20:05] VITALS: BP 125/64
[2021-02-17] MEDS: MONTELUKAST SODIUM 10 MG TABLET PO SCH (20:12)
[2021-02-17] MEDS: DOCUSATE SODIUM 250 MG CAPSULE PO SCH (20:12)
[2021-02-17] MEDS: DONEPEZIL 10 MG TABLET PO SCH (20:12)
[2021-02-18 04:25] VITALS: BP 126/56
[2021-02-18] MEDS: PIPERACILLIN SODIUM/TAZOBACTAM 3.375 G in IV DEXTROSE 5% 100 ML IV SCH ×2 (05:05→13:18)
[2021-02-18] MEDS: LEVOTHYROXINE SODIUM 50 MCG TABLET PO SCH (06:01)
[2021-02-18 06:22] LABS: HEMATOCRIT 29.2 % (31.2-41.9); MEAN CORPUSCULAR HEMOGLOBIN 30.3 uug (24.7-32.8); MEAN CORPUSCULAR VOLUME 88.3 fL (75.5-95.3); PLATELET COUNT (AUTO) 353 K/uL (179-408)
[2021-02-18 06:35] LABS: CREATININE 0.8 mg/dL (0.6-1.3); MAGNESIUM 2.6 mg/dL (1.8-2.4); PHOSPHOROUS 3.7 mg/dL (2.5-4.9); POTASSIUM 3.9 mmol/L (3.5-5.1)
--- NOTE | 2021-02-18 08:00 | NUR ---
awake but confused, repeats name when called, no distress noted, left hip original dsg dry and intact, abduction pillow in place, repositioned, safety measures maintained
[2021-02-18] MEDS: MEMANTINE HCL 10 MG TABLET PO SCH ×2 (09:17→16:26)
[2021-02-18] MEDS: DIVALPROEX 125 MG TABLET.DR PO SCH (09:18)
[2021-02-18] MEDS: MULTIVITAMINS,THERAPEUTIC TABLET PO SCH (09:18)
[2021-02-18] MEDS: CHOLECALCIFEROL 1,000 UNIT TABLET PO SCH (09:19)
[2021-02-18] MEDS: ENOXAPARIN SODIUM 40 MG/0.4 ML DISP.SYRIN SQ SCH (09:20)
[2021-02-18] MEDS: AMLODIPINE 2.5 MG TABLET PO SCH (09:20)
[2021-02-18] MEDS: ENSURE ENLIVE (VAN) 240 ML LIQUID PO SCH ×2 (09:28→16:26)
[2021-02-18 12:00] VITALS: BP 143/71
--- NOTE | 2021-02-18 12:00 | NUR ---
fed with meals- no coughing episodes noted, pt to be discharged back to snf today
[2021-02-18] MEDS ORDERED: PIPE3.379 IV (13:54)
[2021-02-18] MEDS ORDERED: ENOX40DI SUBCUT (13:55)
[2021-02-18 16:00] VITALS: BP 139/67
--- NOTE | 2021-02-18 16:00 | NUR ---
left hip dsg changed, lelia intact, incision clean and dry- new dsg applied.
--- NOTE | 2021-02-18 16:45 | NUR ---
report given to Natalie in [facility], all belongings ready, right upper arm midline in place.
--- NOTE | 2021-02-18 17:00 | NUR ---
taken by ambulance in stable condition with all belongings, VS as follows:BP 117/67, HR 100, RR 20, 100% on r/a
== END 2021-02-18 17:00 | DRG 521 ==
LOC: ER 21:30 → MEDSURG3 02-12 02:16 → TELE3 02-12 10:49 → MEDSURG3 02-13 15:20
PROVIDERS: ADMIT Nurse Practitioner Acute Care; ATTEND Nurse Practitioner Acute Care
PROC: 05H533Z Insertion of Infusion Device into Right Subclavian Vein, Percutaneous Approach (ICD-10-PCS; 2021-02-12)
PROC: B546ZZA Ultrasonography of Right Subclavian Vein, Guidance (ICD-10-PCS; 2021-02-12)
PROC: 0SRB0JA Replacement of Left Hip Joint with Synthetic Substitute, Uncemented, Open Approach (ICD-10-PCS; principal; 2021-02-14)
DX: S72.002A Fracture of unspecified part of neck of left femur, initial encounter for closed fracture (principal); J69.0 Pneumonitis due to inhalation of food and vomit; D68.59 Other primary thrombophilia; N39.0 Urinary tract infection, site not specified; F02.80 Dementia in other diseases classified elsewhere, unspecified severity, without behavioral disturbance, psychotic disturbance, mood disturbance, and anxiety; F20.9 Schizophrenia, unspecified; G30.9 Alzheimer's disease, unspecified; E03.9 Hypothyroidism, unspecified; G47.00 Insomnia, unspecified; I10 Essential (primary) hypertension; J45.909 Unspecified asthma, uncomplicated; K59.00 Constipation, unspecified; Z98.1 Arthrodesis status; Z20.822 Contact with and (suspected) exposure to COVID-19; D72.829 Elevated white blood cell count, unspecified; M85.80 Other specified disorders of bone density and structure, unspecified site; Z74.09 Other reduced mobility; B96.20 Unspecified Escherichia coli [E. coli] as the cause of diseases classified elsewhere; Z96.641 Presence of right artificial hip joint; E04.1 Nontoxic single thyroid nodule
CPT/HCPCS: 36415; 51702; 70030-TC; 70450; 71045; 72125; 72170; 83735; 84100; 85025; 85610; 85730; 86850; 86900; 86901; 87040; 87077; 87086; 93005; 93307; 97161; A4649; A4663; C1776; G0378; J0696; J1170; J1650; J2250; J2270; J2405; J2543; J3010; J3370; J3480; J3490; J7030; J7040; J7050; J7060